=== PATIENT | female | born 1990 | race Caucasian/White ===

== ENCOUNTER 2017-05-09 23:22 | Emergency (ER) | payer BC, OTHER ==
[2017-05-10] MEDS ORDERED: KETOROLAC 30 MG/ML 1 ML VIAL IVP STA
[2017-05-10] MEDS ORDERED: SODIUM CHLORIDE 0.9% 1,000 ML IV ONE
--- NOTE | 2017-05-10 00:06 | ED ---
Abdominal Pain HPI - General Chief Complaint: Abdominal Pain Stated Complaint: abdominal pain/post c section Time Seen by Provider: 05/09/17 23:47 Source: patient, family, RN notes reviewed Mode of arrival: ambulatory Limitations: no limitations - History of Present Illness Initial Comments: Patient is a 26-year-old female presents to the emergency room for evaluation of abdominal pain. Patient states she has a section about 2 weeks ago. Patient states the incision area has not been causing her any pain and has been healing well. Patient states she began developing back pain radiating to her upper abdomen tonight. Patient states she began feeling short of breath. Patient states that the pain comes in waves. Patient denies any other surgeries on her abdomen besides section. Patient states the pain is very nagging and sharp. Patient states the chest pain has subsided. Patient states she still feeling slightly short of breath. Patient does admit to smoking daily. Patient denies nausea or vomiting. Patient denies fevers or chills. Patient states she has been constipated over the past day. Patient denies any pain or burning during urination, trouble urinating or blood in urine. Patient denies history of kidney stones. - Related Data Home Medications Medication Instructions Recorded Confirmed Dextroamphetamine/Amphetamine 20 mg PO BID 05/09/17 05/09/17 [Adderall] Allergies Allergy/AdvReac Type Severity Reaction Status Date / Time No Known Allergies Allergy Verified 05/09/17 23:29 Review of Systems ROS Statement: Those systems with pertinent positive or pertinent negative responses have been documented in the HPI. ROS Other: All systems not noted in ROS Statement are negative. Past Medical History Past Medical History: No Reported History History of Any Multi-Drug Resistant Organisms: None Reported Past Surgical History: Section, Joint Replacement, Tonsillectomy Past Psychological History: ADD/ADHD Smoking Status: Current every day smoker Past Alcohol Use History: Occasional Past Drug Use History: None Reported General Exam - General Exam Comments Initial Comments: Sitting in exam room, no acute distress. Limitations: no limitations General appearance: alert, in no apparent distress Head exam: Present: atraumatic, normocephalic, normal inspection Eye exam: Present: normal appearance ENT exam: Present: normal exam Neck exam: Present: normal inspection Respiratory exam: Present: normal lung sounds bilaterally. Absent: respiratory distress Cardiovascular Exam: Present: regular rate, normal rhythm, normal heart sounds GI/Abdominal exam: Present: soft, normal bowel sounds. Absent: distended, tenderness, guarding, rebound, rigid Extremities exam: Present: normal inspection Back exam: Present: normal inspection Neurological exam: Present: alert, oriented X3, CN II-XII intact, normal gait Psychiatric exam: Present: normal affect, normal mood Skin exam: Present: warm, dry, intact, normal color. Absent: rash Course Vital Signs 05/09/17 05/10/17 05/10/17 23:25 01:25 03:59 Temperature 97.8 F 98.3 F 98.2 F Pulse Rate 83 67 87 Respiratory 20 16 16 Rate Blood Pressure 130/80 113/70 128/78 O2 Sat by Pulse 100 97 97 Oximetry Medical Decision Making - Medical Decision Making Patient is a 26-year-old female presents emergency room for motion of abdominal pain, chest pain shortness of breath. Patient's d-dimer was elevated. CT angio chest negative for pulmonary embolism. Patient states she's feeling a lot better after medications given and would like to be discharged home. Patient advised to follow-up with primary care provider. Patient advised to return for worsening symptoms. Patient states she understands everything that was discussed with her. Case discussed with Dr. Simmons. - Lab Data Result diagrams: 05/10/17 00:20 05/09/17 00:20 Lab Results 05/09/17 05/10/17 05/10/17 Range/Units 00:20 00:20 00:20 WBC 17.1 H (3.8-10.6) k/uL RBC 4.63 (3.80-5.40) m/uL Hgb 13.5 (11.4-16.0) gm/dL Hct 40.5 (34.0-46.0) % MCV 87.4 (80.0-100.0) fL MCH 29.2 (25.0-35.0) pg MCHC 33.4 (31.0-37.0) g/dL RDW 13.4 (11.5-15.5) % Plt Count 488 H (150-450) k/uL Neutrophils % 82 % Lymphocytes % 13 % Monocytes % 3 % Eosinophils % 2 % Basophils % 1 % Neutrophils # 13.9 H (1.3-7.7) k/uL Lymphocytes # 2.2 (1.0-4.8) k/uL Monocytes # 0.4 (0-1.0) k/uL Eosinophils # 0.3 (0-0.7) k/uL Basophils # 0.1 (0-0.2) k/uL D-Dimer 1.17 H (<0.60) mg/L FEU Sodium 143 (137-145) mmol/L Potassium 3.7 (3.5-5.1) mmol/L Chloride 107 (98-107) mmol/L Carbon Dioxide 26 (22-30) mmol/L Anion Gap 10 mmol/L BUN 10 (7-17) mg/dL Creatinine 0.90 (0.52-1.04) mg/dL Est GFR (MDRD) Af Amer >60 (>60 ml/min/1.73 sqM) Est GFR (MDRD) Non-Af >60 (>60 ml/min/1.73 sqM) Glucose 90 (74-99) mg/dL Calcium 9.3 (8.4-10.2) mg/dL Total Bilirubin 0.3 (0.2-1.3) mg/dL AST 49 H (14-36) U/L ALT 59 H (9-52) U/L Alkaline Phosphatase 92 (38-126) U/L Total Protein 6.3 (6.3-8.2) g/dL Albumin 3.8 (3.5-5.0) g/dL Amylase <30 L (30-110) U/L Lipase 49 (23-300) U/L Urine Color Urine Appearance (Clear) Urine pH (5.0-8.0) Ur Specific [place] (1.001-1.035) Urine Protein (Negative) Urine Glucose (UA) (Negative) Urine Ketones (Negative) Urine Blood (Negative) Urine Nitrite (Negative) Urine Bilirubin (Negative) Urine Urobilinogen (<2.0) mg/dL Ur Leukocyte Esterase (Negative) Urine RBC (0-5) /hpf Urine WBC (0-5) /hpf Ur Squamous Epith Cells (0-4) /hpf Hyaline Casts (0-2) /lpf 05/10/17 Range/Units 00:20 WBC (3.8-10.6) k/uL RBC (3.80-5.40) m/uL Hgb (11.4-16.0) gm/dL Hct (34.0-46.0) % MCV (80.0-100.0) fL MCH (25.0-35.0) pg MCHC (31.0-37.0) g/dL RDW (11.5-15.5) % Plt Count (150-450) k/uL Neutrophils % % Lymphocytes % % Monocytes % % Eosinophils % % Basophils % % Neutrophils # (1.3-7.7) k/uL Lymphocytes # (1.0-4.8) k/uL Monocytes # (0-1.0) k/uL Eosinophils # (0-0.7) k/uL Basophils # (0-0.2) k/uL D-Dimer (<0.60) mg/L FEU Sodium (137-145) mmol/L Potassium (3.5-5.1) mmol/L Chloride (98-107) mmol/L Carbon Dioxide (22-30) mmol/L Anion Gap mmol/L BUN (7-17) mg/dL Creatinine (0.52-1.04) mg/dL Est GFR (MDRD) Af Amer (>60 ml/min/1.73 sqM) Est GFR (MDRD) Non-Af (>60 ml/min/1.73 sqM) Glucose (74-99) mg/dL Calcium (8.4-10.2) mg/dL Total Bilirubin (0.2-1.3) mg/dL AST (14-36) U/L ALT (9-52) U/L Alkaline Phosphatase (38-126) U/L Total Protein (6.3-8.2) g/dL Albumin (3.5-5.0) g/dL Amylase (30-110) U/L Lipase (23-300) U/L Urine Color Yellow Urine Appearance Clear (Clear) Urine pH 6.0 (5.0-8.0) Ur Specific [place] 1.020 (1.001-1.035) Urine Protein Trace H (Negative) Urine Glucose (UA) Negative (Negative) Urine Ketones Negative (Negative) Urine Blood Moderate H (Negative) Urine Nitrite Negative (Negative) Urine Bilirubin Negative (Negative) Urine Urobilinogen <2.0 (<2.0) mg/dL Ur Leukocyte Esterase Moderate H (Negative) Urine RBC 4 (0-5) /hpf Urine WBC 10 H (0-5) /hpf Ur Squamous Epith Cells 3 (0-4) /hpf Hyaline Casts 2 (0-2) /lpf - Radiology Data Radiology results: report reviewed, image reviewed Disposition Clinical Impression: Abdominal pain, Chest pain Disposition: HOME SELF-CARE Condition: Good Instructions: Abdominal Pain (ED) Additional Instructions: Tylenol or Motrin as needed for pain. Please follow up with primary care provider in 1-2 days. If any new symptom arises or symptoms worsen, return to ER as soon as possible. Referrals: Nonstaff,Physician [Primary Care Provider] - 1-2 days Time of Disposition: 03:54
[2017-05-10 00:42] LABS: Basophils # (A) 0.1 k/uL (0-0.2); Basophils % (A) 1 %; CH 30.1; CHCM 34.5; Eosinophils # (A) 0.3 k/uL (0-0.7); Eosinophils % (A) 2 %; HCT 40.5 % (34.0-46.0); HDW 2.92; HGB 13.5 gm/dL (11.4-16.0); Luc # (Auto) 0.11; Luc % (Auto) 1; Lymphocytes # (A) 2.2 k/uL (1.0-4.8); Lymphocytes % (A) 13 %; MCH 29.2 pg (25.0-35.0); MCHC 33.4 g/dL (31.0-37.0); MCV 87.4 fL (80.0-100.0); Mean Platelet Volume 6.6; Monocytes # (A) 0.4 k/uL (0-1.0); Monocytes % (A) 3 %; Neutrophils # (A) 13.9 k/uL (1.3-7.7); Neutrophils % (A) 82 %; RBC 4.63 m/uL (3.80-5.40); RDW 13.4 % (11.5-15.5); WBC 17.1 k/uL (3.8-10.6)
[2017-05-10 00:43] LABS: Appearance,Urine Clear (Clear); Bilirubin,Urine Negative (Negative); Glucose,Urine (UA) Negative (Negative); Ketones,Urine Negative (Negative); Leukocyte Esterase,Urine Moderate (Negative); Nitrite,Urine Negative (Negative); Particle Count 3478; Protein,Urine Trace (Negative); RBC,Urine 4 /hpf (0-5); Squamous Epithelial Cell,Urine 3 /hpf (0-4); UA Billing (MACRO vs. MICRO) MICRO; Urobilinogen,Urine <2.0 mg/dL (<2.0); WBC,Urine 10 /hpf (0-5)
[2017-05-10 00:48] LABS: ALT 59 U/L (9-52); AST 49 U/L (14-36); Alkaline Phosphatase 92 U/L (38-126); Amylase <30 U/L (30-110); Anion Gap 10 mmol/L; Blood Urea Nitrogen 10 mg/dL (7-17); Calcium 9.3 mg/dL (8.4-10.2); Carbon Dioxide 26 mmol/L (22-30); Chloride 107 mmol/L (98-107); Glucose 90 mg/dL (74-99); Non-African American GFR(MDRD) >60 (>60 ml/min/1.73 sqM); Potassium 3.7 mmol/L (3.5-5.1); Sodium 143 mmol/L (137-145); Total Bilirubin 0.3 mg/dL (0.2-1.3); Total Protein 6.3 g/dL (6.3-8.2)
--- NOTE | 2017-05-10 01:09 | XR ---
EXAM: XR Abdomen Complete With XR Chest CLINICAL HISTORY: Reason: pt. was having back pain that radiated to her chest; hx c section two weeks ago TECHNIQUE: Frontal view of the chest, frontal view of the abdomen/pelvis and upright view of the abdomen. COMPARISON: None FINDINGS: Lungs/pleura: Minimal elevation of the right hemidiaphragm. No focal consolidation. No pleural effusion or pneumothorax. Heart/mediastinum: Normal. No cardiomegaly. Soft tissues: Unremarkable. Bones: No acute fracture. Abdomen: Moderate stool. Nonobstructive bowel gas pattern. No free air. IMPRESSION: Normal exam.
[2017-05-10] MEDS ORDERED: RX INFO: IV CONTRAST WAS GIVEN 1 EACH MISC MISCELLANE PRN (01:13)
[2017-05-10 01:26] VITALS: RESP 16
--- NOTE | 2017-05-10 03:42 | CT ---
EXAM: CT Angiography Chest With Intravenous Contrast CLINICAL HISTORY: Reason: chest and back pain, pt s/o 2 weeks, elevated d-dimer TECHNIQUE: Axial computed tomographic angiography images of the chest with intravenous contrast using pulmonary embolism protocol. CTDI is 3.20 mGy and DLP is 390.70 mGy-cm. This CT exam was performed using one or more of the following dose reduction techniques: automated exposure control, adjustment of the mA and/or kV according to patient size, and/or use of iterative reconstruction technique. MIP reconstructed images were created and reviewed. COMPARISON: None FINDINGS: Lung parenchyma: Mild dependent atelectasis bilaterally. No focal consolidation. No nodule. Pleural space: Normal. No pleural effusion or pneumothorax. Mediastinum/kailyn: Normal. No mass or lymphadenopathy. Heart: Normal. No cardiomegaly or pericardial effusion. Vasculature: Normal. No pulmonary embolus. Aorta: Normal. No aneurysm or dissection. Airways: Patent. Bones: Normal. No bony lesion or acute fracture. Muscles: No mass. Subcutaneous tissues: Normal. Upper abdomen: Stomach is distended with ingested material. IMPRESSION: No evidence of pulmonary embolus or other acute abnormality in the chest.
[2017-05-10 04:00] VITALS: BP 128/78; PULSE 87; TEMP 98.2
== END 2017-05-10 03:59 | disposition home or self-care (01) ==
LOC: EC 23:22
DX: R10.10 Upper abdominal pain, unspecified (principal); R07.9 Chest pain, unspecified; R79.1 Abnormal coagulation profile; M54.9 Dorsalgia, unspecified; R06.02 Shortness of breath; F90.9 Attention-deficit hyperactivity disorder, unspecified type; F17.200 Nicotine dependence, unspecified, uncomplicated; Z79.899 Other long term (current) drug therapy
CPT/HCPCS: 99284; 96374; 36415 ×2; 85379; 80053; 82150; 83690; 85025; 81001; 74022; 71275; Q9967; J1885

== ENCOUNTER 2022-08-31 13:35 | Emergency (ER) | payer BC, OTHER ==
[2022-08-31 13:42] VITALS: BP 118/75; PULSE 71; RESP 20; TEMP 98.1
[2022-08-31] MEDS ORDERED: KETOROLAC 15 MG/ML 1 ML VIAL IM STA (14:04)
--- NOTE | 2022-08-31 14:08 | ED ---
Extremity Problem HPI - General Chief complaint: Extremity Problem,Nontraumatic Stated complaint: Arm injury Time Seen by Provider: 08/31/22 13:44 Source: patient, RN notes reviewed, old records reviewed Mode of arrival: ambulatory Limitations: no limitations - History of Present Illness Initial comments: 32-year-old well-appearing female presents ambulatory with left wrist and forearm pain after repetitive carving movements for 10 hours yesterday and additional 4 hours today. Pain with flexion and extension of thumb and wrist along with pain with palpation of forearm along radius. She did take Tylenol prior to arrival with minimal relief. No fevers, no other joint pain. No similar pain previously. MD Complaint: extremity pain, joint swelling (wrist left) -: days(s) (2) Location: left (wrist forearm) History of Same: No Severity scale (1-10): 8 Consistency: constant Improves with: immobilization Worsens with: other (movement) Associated Symptoms: denies other symptoms - Related Data Home Medications Medication Instructions Recorded Confirmed Dextroamphetamine/Amphetamine 20 mg PO BID 05/09/17 05/09/17 [Adderall] Previous Rx's Medication Instructions Recorded Ibuprofen [Motrin] 600 mg PO Q8HR PRN #30 tab 08/31/22 Allergies Allergy/AdvReac Type Severity Reaction Status Date / Time No Known Allergies Allergy Verified 05/09/17 23:29 Review of Systems ROS Statement: Those systems with pertinent positive or pertinent negative responses have been documented in the HPI. ROS Other: All systems not noted in ROS Statement are negative. Past Medical History Past Medical History: No Reported History History of Any Multi-Drug Resistant Organisms: None Reported Past Surgical History: Section, Joint Replacement, Tonsillectomy Past Psychological History: ADD/ADHD Smoking Status: Current every day smoker, Vaper Past Alcohol Use History: Occasional Past Drug Use History: None Reported General Exam Limitations: no limitations General appearance: alert, in no apparent distress Head exam: Present: atraumatic Respiratory exam: Absent: respiratory distress, accessory muscle use Cardiovascular Exam: Present: regular rate Left Elbow exam: Present: full ROM. Absent: tenderness Forearm Wrist exam: Present: full ROM, tenderness (radial). Absent: swelling, abrasion, laceration, ecchymosis, deformity, crepitus, dislocation, tenderness over anatomical snuff box, pain with axial thumb loading Hand Wrist exam: Present: full ROM, tenderness. Absent: swelling, laceration, ecchymosis Neuro motor exam: Present: wrist extension intact, fingers 2-5 abduction intact Neurosensory exam: Present: 2-point discrimination, radial nerve intact, ulnar nerve intact, median nerve intact Vascular: Present: normal capillary refill, radial pulse. Absent: vascular compromise Neurological exam: Present: alert, oriented X3, normal gait Psychiatric exam: Present: normal affect, normal mood Skin exam: Present: warm, dry, normal color. Absent: cyanosis, diaphoretic, petechiae, pallor Course Vital Signs 08/31/22 13:38 Temperature 98.1 F Pulse Rate 71 Respiratory 20 Rate Blood Pressure 118/75 O2 Sat by Pulse 99 Oximetry Medical Decision Making - Medical Decision Making X-ray of left forearm and wrist shows soft tissue swelling medial side mid to distal forearm. No osseous abnormality. On physical exam patient does have pain with ulnar deviation, positive Geraldo test. This is consistent with a tendinitis likely related to repetitive movements over the last 2 days. Patient was given a shot of Toradol. Directed to rest, ice, wear Ruperto wrap or obtain thumb spica/wrist splint as prescribed. Motrin 600 mg every 8 hours for the next 3-5 days. Follow up with her primary care doctor next week. Referral given to ortho as needed. Patient is agreeable to this plan of care. Case discussed with Dr. Kenny. Disposition Clinical Impression: De Quervain's tenosynovitis, left Disposition: HOME SELF-CARE Condition: Good Instructions (If sedation given, give patient instructions): De Quervain Disease (ED), Arthralgia (ED) Additional Instructions: Rest, ice, Ruperto wrap and elevate. Avoid repetitive movements. Wear splint until pain resolves. Take 600mg of Motrin every 6-8 hours for the next 3 days. Follow-up with the primary care doctor next week and orthopedics as needed. Prescriptions: Ibuprofen [Motrin] 600 mg PO Q8HR PRN #30 tab PRN Reason: Pain Is patient prescribed a controlled substance at d/c from ED?: No Referrals: None,Stated [Primary Care Provider] - 1-2 days Jadiel Bella MD [STAFF PHYSICIAN] - 1-2 days Time of Disposition: 15:08
--- NOTE | 2022-08-31 14:56 | XR ---
EXAMINATION TYPE: XR forearm 2 views LT, XR wrist complete 4 views LT DATE OF EXAM: 08/31/2022 COMPARISON: NONE HISTORY: 32-year-old female pain FINDINGS: Forearm: Obliquity on the lateral view precludes adequate assessment of elbow joint effusion. There may be ness e mild radial sided soft tissue swelling mid to distal forearm. No acute fracture. No periostitis or osteolysis. Wrist: There may be some mild soft tissue swelling about the distal forearm. The radiocarpal and distal radi oulnar joint as well as the midcarpal compartment appear intact. No acute fracture, subluxation, disl ocation seen. IMPRESSION: 1. Forearm: No acute osseous abnormality seen. The radial sided soft tissue swelling of the mid to di stal forearm. 2. Wrist: Some soft tissue swelling about the distal forearm. No acute osseous abnormality seen.
== END 2022-08-31 15:25 | disposition home or self-care (01) ==
LOC: EC 13:35
DX: M65.4 Radial styloid tenosynovitis [de Quervain] (principal); F90.9 Attention-deficit hyperactivity disorder, unspecified type; F17.200 Nicotine dependence, unspecified, uncomplicated; F17.290 Nicotine dependence, other tobacco product, uncomplicated; Z79.899 Other long term (current) drug therapy
CPT/HCPCS: 99283; 73090; 73110; 96372; J1885

== ENCOUNTER 2022-12-07 17:56 | Emergency (ER) | payer OTHER ==
[2022-12-07 18:00] VITALS: TEMP 98.1
[2022-12-07] MEDS ORDERED: KETOROLAC 15 MG/ML 1 ML VIAL IM STA (18:25)
--- NOTE | 2022-12-07 19:31 | US ---
EXAMINATION TYPE: US venous doppler duplex LE RT DATE OF EXAM: 12/07/2022 6:25 PM COMPARISON: NONE CLINICAL HISTORY: eval for dvt. Patient states knee swelling. Lump on mid thigh x months SIDE PERFORMED: Right TECHNIQUE: The lower extremity deep venous system is examined utilizing real time linear array sonog kierra with graded compression, doppler sonography and color-flow sonography. VESSELS IMAGED: Common Femoral Vein Deep Femoral Vein Greater Saphenous Vein * Femoral Vein Popliteal Vein Small Saphenous Vein * Proximal Calf Veins (* superficial vessels) FINDINGS: Grayscale, color doppler, spectral doppler imaging performed of the deep veins of the righ t lower extremity. There is normal flow, compressibility, vascular waveforms. IMPRESSION: 1. Negative for DVT, right lower extremity. 2. Hyperechoic nonvascular area visualized in area of lump in mid/dist thigh measuring 1.9 x 1.6 x 0. 9 cm. Recommend follow-up to resolution.
--- NOTE | 2022-12-07 19:44 | XR ---
PROCEDURE: XR knee complete RT - 3V DATE AND TIME: 12/07/2022 6:48 PM CLINICAL INDICATION: Pain; eval for dvt TECHNIQUE: Department protocol COMPARISON: None FINDINGS: There is no fracture or malalignment. The soft tissues are unremarkable. IMPRESSION: NO ACUTE PROCESS.
--- NOTE | 2022-12-07 19:56 | ED ---
General Adult HPI - General Chief complaint: Extremity Injury, Lower Stated complaint: R. Knee Pain&Swelling Time Seen by Provider: 12/07/22 18:02 Source: patient, RN notes reviewed, old records reviewed Mode of arrival: ambulatory Limitations: no limitations - History of Present Illness Initial comments: Patient is a 32-year-old female with past medical history remarkable for remote right knee ACL tear repair in 2004 who presents emergency Department complaining of 2 weeks of worsening right knee pain and swelling. Also endorses some swelling over the anterior right thigh. Patient is on her feet all day at work, and is uncertain if this is continuing to her current symptoms. Can ambulate. Describes the pain as achy, and is worse with some movements of her knee. Denies any new injuries. Denies any neurosensory deficits. Denies any weakness, numbness. Denies any skin color changes. No history of blood clots. No recent long-distance travel. Presents for further evaluation. - Related Data Home Medications Medication Instructions Recorded Confirmed Dextroamphetamine/Amphetamine 20 mg PO BID 05/09/17 05/09/17 [Adderall] Previous Rx's Medication Instructions Recorded Ibuprofen [Motrin] 600 mg PO Q8HR PRN #30 tab 08/31/22 Allergies Allergy/AdvReac Type Severity Reaction Status Date / Time No Known Allergies Allergy Verified 12/07/22 18:00 Review of Systems ROS Statement: Those systems with pertinent positive or pertinent negative responses have been documented in the HPI. Review of Systems: CONST: Denies fever EYES: Denies blurry vision ENT: Denies nasal congestion C/V: Denies Chest pain RESP: Denies shortness of breath GI: Denies abdominal pain : Denies dysuria SKIN: Denies rash. MSK: Endorses right knee pain NEURO: Denies headache ROS Other: All systems not noted in ROS Statement are negative. Past Medical History Past Medical History: No Reported History History of Any Multi-Drug Resistant Organisms: None Reported Past Surgical History: Section, Joint Replacement, Tonsillectomy Additional Past Surgical History / Comment(s): Right knee ACL tear 2004 Past Psychological History: ADD/ADHD Smoking Status: Current every day smoker, Vaper Past Alcohol Use History: Occasional Past Drug Use History: None Reported General Exam - General Exam Comments Initial Comments: General: Appears in no acute distress. HEAD: Normal with no signs of head trauma. EYES: EOMI ENT: Hearing grossly intact RESPIRATORY: No respiratory distress C/V: Peripheral pulses 2+ and intact throughout. ABD: Nondistended EXT: Normal range of motion, no obvious deformity. Tenderness palpation over the medial aspect of the right knee. Can hold the knee in full extension against gravity. Can ambulate on the right knee. Neurovascularly intact throughout. Patient does have a small soft mass located over the medial anterior aspect of the mid thigh on the right leg. This is not fluctuant. Does not appear to be infectious. Possible lymph node. Lockman's test negative. SKIN: No rashes or lesions observed on exposed skin. NEURO: Alert and oriented 4. Limitations: no limitations Course Vital Signs 12/07/22 12/07/22 17:57 19:59 Temperature 98.1 F Pulse Rate 75 70 Respiratory 18 16 Rate Blood Pressure 115/75 110/67 O2 Sat by Pulse 97 99 Oximetry Medical Decision Making - Medical Decision Making Based on the patient's presentation and physical exam, she presents complaining of atraumatic knee pain. Did offer her an x-ray as well as venous duplex DVT due to the strange suspected lymph node located over the thigh. She was in agreement this plan. She'll be given Toradol injection. Vital signs within except limits. Patient's right knee x-ray shows no acute process. Prior ACL repairs redemonstrated. Patient's venous duplex ultrasound revealed no evidence of DVT, however there is a hypoechoic nonvascular lump in the mid to distal thigh. Recommend follow-up imaging. I updated the patient on the results. She exposed understanding. She will follow up with orthopedics in obtain repeat imaging of the lump in her right thigh. Discussed rest, ice, elevation. She'll be given a work note as well. She was in agreement this plan. I instructed the patient to follow up with their PCP in the next 1-3 days. I provided contact information for follow up with orthopedic surgery. I explained that the patient should return to the emergency department if they experience any worsening symptoms. Strict return precautions were discussed with the patient. The patient expressed understanding of these instructions. I answered all questions that the patient had. The patient was discharged home in good condition with their prescriptions and follow up information. Was pt. sent in by a medical professional or institution (, PA, URBAN DESIGN CONSULTANT, urgent care, hospital, or assisted...) When possible be specific @ -No Did you speak to anyone other than the patient for history (EMS, parent, family, police, friend...)? What history was obtained from this source @ -No Did you review nursing and triage notes (agree or disagree)? Why? @ -I reviewed and agree with nursing and triage notes Were old charts reviewed (outside hosp., previous admission, EMS record, old EKG, old radiological studies, urgent care reports/EKG's, assisted records)? Report findings @ -No old charts were reviewed Differential Diagnosis (chest pain, altered mental status, abdominal pain women, abdominal pain men, vaginal bleeding, weakness, fever, dyspnea, syncope, headache, dizziness, GI bleed, back pain, seizure, CVA, palpatations, mental health)? @ -Right knee sprain, right knee fracture, DVT, this list is not all-inclusive. EKG interpreted by me (3pts min.). @ -None done X-rays interpreted by me (1pt min.). @ -Right knee x-ray shows no acute traumatic process. CT interpreted by me (1pt min.). @ -None done U/S interpreted by me (1pt. min.). @ -Right leg ultrasound reveals no acute DVT. There is a soft lump located in the anterior medial right thigh. Repeat imaging recommended. Could represent a lymph node. What testing was considered but not performed or refused? (CT, X-rays, U/S, labs)? Why? @ -None What meds were considered but not given or refused? Why? @ -None Did you discuss the management of the patient with other professionals (professionals i.e. , PA, URBAN DESIGN CONSULTANT, lab, RT, psych nurse, social work specialist, criminal research specialist, teacher, traffic division commanding officer, manager case management)? Give summary @ -No Was smoking cessation discussed for >3mins.? @ -No Was critical care preformed (if so, how long)? @ -No Were there social determinants of health that impacted care today? How? (Homelessness, low income, unemployed, alcoholism, drug addiction, transportation, low edu. Level, literacy, decrease access to med. care, retirement, r ehab)? @ -No Was there de-escalation of care discussed even if they declined (Discuss DNR or withdrawal of care, Hospice)? DNR status @ -No What co-morbidities impacted this encounter? (DM, HTN, Smoking, COPD, CAD, Cancer, CVA, ARF, Chemo, Hep., AIDS, mental health diagnosis, sleep apnea, morbid obesity)? @ -None Was patient admitted / discharged? Hospital course, mention meds given and route, prescriptions, significant lab abnormalities, going to OR and other pertinent info. @ -Discharged home. See above for emergency Department course. Undiagnosed new problem with uncertain prognosis? @ -No Drug Therapy requiring intensive monitoring for toxicity (Heparin, Nitro, Insulin, Cardizem)? @ -No Were any procedures done? @ -No Diagnosis/symptom? @ -Right knee pain Acute, or Chronic, or Acute on Chronic? @ -Acute on chronic Uncomplicated (without systemic symptoms) or Complicated (systemic symptoms)? @ -Uncomplicated Side effects of treatment? @ -No Exacerbation, Progression, or Severe Exacerbation? @ -No Poses a threat to life or bodily function? How? (Chest pain, [place], [place], pneumonia, PE, COPD, DKA, ARF, appy, cholecystitis, CVA, Diverticulitis, Homicidal, Suicidal, threat to staff... and all critical care pts) @ -No Disposition Clinical Impression: Right knee pain Disposition: HOME SELF-CARE Condition: Good Instructions (If sedation given, give patient instructions): Knee Sprain (ED) Is patient prescribed a controlled substance at d/c from ED?: No Referrals: None,Stated [Primary Care Provider] - 1-2 days Michel Osorio DO [Doctor of Osteopathic Medicine] - 1-2 days Time of Disposition: 19:45
[2022-12-07 20:00] VITALS: BP 110/67; PULSE 70; RESP 16
== END 2022-12-07 19:59 | disposition home or self-care (01) ==
LOC: EC 17:56
DX: M25.561 Pain in right knee (principal); F90.9 Attention-deficit hyperactivity disorder, unspecified type; F17.290 Nicotine dependence, other tobacco product, uncomplicated
CPT/HCPCS: 73562; 93971; 99284; 96372; J1885